=== PATIENT | female | born 1985 | race African-American/Black ===

== ENCOUNTER 2016-06-27 16:30 | Emergency (ER) | payer MEDICAID ==
[~2016-06-27] VITALS: Ht 162.6 cm; Wt 101.9 kg
[2016-06-27 19:35] VITALS: BP 124/96
== END 2016-06-27 19:37 | disposition home or self-care (01) ==
LOC: ER 17:30
DX: M25.561 Pain in right knee (principal); N91.2 Amenorrhea, unspecified; Z98.890 Other specified postprocedural states
CPT/HCPCS: 36415; 81025; 84702; 99282; 99283

== ENCOUNTER 2018-03-10 09:21 | Emergency (ER) | payer MEDICAID ==
[~2018-03-10] VITALS: Ht 157.5 cm; Wt 93.0 kg
[2018-03-10] MEDS ORDERED: ACETAMINOPHEN 325MG TABLET PO PRN (10:30)
[2018-03-10 10:49] LABS: CLARITY URINE CLEAR (CLEAR); COLOR URINE YELLOW (YELLOW); KETONES URINE NEGATIVE (NEGATIVE); LEUKOCYTE ESTERASE URINE NEGATIVE (NEGATIVE); NITRITE URINE NEGATIVE (NEGATIVE); OCCULT BLOOD URINE NEGATIVE (NEGATIVE); PROTEIN URINE NEGATIVE (NEGATIVE); SPECIFIC GRAVITY URINE 1.025 (1.005-1.030); UROBILINOGEN URINE 0.2 E.U./dL (0.2-1.0)
[2018-03-10] MEDS ORDERED: AZITHROMYCIN 500 MG TABLET PO ONE (14:45)
[2018-03-10] MEDS ORDERED: LIDOCAINE HCL/PF 1% 2ML VIAL INFIL ONE (14:45)
[2018-03-10] MEDS ORDERED: CEFTRIAXONE SODIUM 250 MG/VIAL IM ONE (14:45)
[2018-03-10 15:00] VITALS: BP 128/26
[2018-03-10] MEDS ORDERED: LIDOCAINE HCL/PF 1% 10 MG/ML 5ML VIAL IJ SCH (15:15)
== END 2018-03-10 15:15 | disposition home or self-care (01) ==
LOC: ER 09:21
DX: O00.01 Abdominal pregnancy with intrauterine pregnancy (principal); N89.8 Other specified noninflammatory disorders of vagina; R51 Headache; M54.9 Dorsalgia, unspecified; Z3A.09 9 weeks gestation of pregnancy
CPT/HCPCS: 36415; 76801; 76817; 81003; 81025; 84702; 86850; 86900; 86901; 87210; 96372; 99285; J0696; J3490; Z7610